=== PATIENT | female | born 1990 | race Caucasian/White ===

== ENCOUNTER 2023-06-18 19:44 | Emergency (ER) | payer MEDICAID ==
[~2023-06-18] VITALS: Ht 165.1 cm; Wt 90.7 kg
[2023-06-18 19:57] VITALS: BP_SYST 141; PULSE 100; RESP 16; TEMP 97.8; O2SAT 99
[2023-06-18 21:12] LABS: BILIRUBIN,URINE NEGATIVE (NEGATIVE); BLOOD, URINE 1+ (NEGATIVE); CLARITY/URINE CLEAR (CLEAR); COLOR,URINE YELLOW (YELLOW); GLUCOSE,URINE NEGATIVE (NEGATIVE); KETONES,URINE NEGATIVE (NEGATIVE); LEUKOCYTE ESTERASE ,URINE 1+ (NEGATIVE); NITRITE, URINE NEGATIVE (NEGATIVE); PROTEIN URINE NEGATIVE (NEGATIVE); UROBILINOGEN,URINE 0.2 (0.2-1.0)
[2023-06-18 21:30] LABS: BACTERIA,URINE RARE /HPF (None Seen)
[2023-06-18] MEDS ORDERED: IBUP-1969 PO (21:30)
[2023-06-18] MEDS ORDERED: LEVO-62 PO (21:30)
[2023-06-18] MEDS: levoFLOXacin 500 MG TABLET PO ONE (21:45)
[2023-06-18] MEDS: IBUPROFEN 600 MG TABLET PO ONE (21:45)
== END 2023-06-18 21:40 | disposition home or self-care (01) ==
LOC: SED 19:44
DX: J18.9 Pneumonia, unspecified organism (principal); N39.0 Urinary tract infection, site not specified; R07.81 Pleurodynia; Z88.0 Allergy status to penicillin; Z88.5 Allergy status to narcotic agent; Z79.899 Other long term (current) drug therapy
CPT/HCPCS: 71046; 81000; 81001; 81015; 81025; 87086; 87186; 93005; 99285